=== PATIENT | male | born 1990 | race Caucasian/White ===

== ENCOUNTER 2016-02-16 22:57 | Emergency (ER) | payer OTHER ==
[~2016-02-16 22:57] MED LIST: Z.0.NO CURRENT MEDS
[2016-02-16] MEDS ORDERED: DIPHTH/TETANUS/ACEL PERTUSSIS (BOOSTER) 0.5 ML VIAL/PFS IM ONE ×2 (23:03→23:11)
[2016-02-16] MEDS ORDERED: ceFAZolin 2 GM PREMIX 50 ML ONE (23:03)
[2016-02-16] MEDS ORDERED: LORazepam 2 MG/ML VIAL ONE (23:11)
[2016-02-16] MEDS ORDERED: ceFAZolin 2 GM PREMIX 50 ML IV STA (23:11)
[2016-02-16 23:15] LABS: I-STAT POTASSIUM 3.3 MMOL/L (3.5-4.9)
[2016-02-16] MEDS ORDERED: SODIUM CHLOR 0.9% 1000 ML INJ 1,000 ML IV ONE (23:15)
[2016-02-16 23:17] LABS: AUTOMATED NEUTROPHIL # 4.4 TH/MM3 (1.8-7.7); BASOPHIL # 0.1 TH/MM3 (0-0.2); BASOPHIL % 0.8 % (0.0-2.0); EOSINOPHIL # 0.1 TH/MM3 (0-0.4); EOSINOPHIL % 1.4 % (0.0-4.0); HEMATOCRIT 43.3 % (39.0-51.0); HEMO FLAGS DIFF FINAL; LYMPH % 41.2 % (9.0-44.0); LYMPHOCYTE # 3.7 TH/MM3 (1.0-4.8); MEAN CELL VOLUME 83.6 FL (80.0-100.0); MEAN CORPUSCULAR HEMOGLOBIN 27.9 PG (27.0-34.0); MEAN CORPUSCULAR HGB CONC 33.3 % (32.0-36.0); MONO % 7.1 % (0.0-8.0); NEUT % 49.5 % (16.0-70.0); PLATELET COUNT 233 TH/MM3 (150-450); RED BLOOD COUNT 5.17 MIL/MM3 (4.50-5.90); RED CELL DISTRIBUTION WIDTH 14.1 % (11.6-17.2)
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
[2016-02-16 23:26] LABS: APTT (PATIENT) 26.6 SEC (24.3-30.1); INTERNATIONAL NORMALIZED RATIO 0.9 RATIO; PROTHROMBIN TIME - PATIENT 10.2 SEC (9.8-11.6)
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
[2016-02-16 23:53] VITALS: BP 133/78; PULSE 106; RESP 18; O2SAT 98
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
[2016-02-17] VITALS (8 sets, daily range): BP systolic 110–140; BP diastolic 68–79; PULSE 75–98; RESP 17–18; O2SAT 97–99
[2016-02-17] MEDS ORDERED: ACETAMINOPHEN/HYDROcodone 325 MG/5 MG TAB PO ONE (01:30)
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
== END 2016-02-17 15:11 | disposition home or self-care (01) ==
LOC: EDBD → MERGE 22:57 → EDBD 22:57 → NEPI 22:57 → NEPJ 02-17 15:11
DX: S01.411A Laceration without foreign body of right cheek and temporomandibular area, initial encounter (principal); F10.94 Alcohol use, unspecified with alcohol-induced mood disorder; F32.9 Major depressive disorder, single episode, unspecified; Y24.0XXA Airgun discharge, undetermined intent, initial encounter; Y93.9 Activity, unspecified; Y92.9 Unspecified place or not applicable
CPT/HCPCS: 70250; 70450; 70486; 71010; 72125; 82435; 82565; 82947; 84132; 84295; 84520; 85025; 85384; 85610; 85730; 86850; 86900; 86901; 90471; 90715; 96365; 96375; 99285; 99291; J0690; J2060; G0390